=== PATIENT | female | born 1995 | race African-American/Black ===

== ENCOUNTER 2017-02-14 03:25 | Emergency (ER) | payer MEDICAID ==
[~2017-02-14] VITALS: Ht 180.3 cm; Wt 131.1 kg
[2017-02-14] MEDS ORDERED: ALPR2TAB2 PO (03:46)
[2017-02-14 04:23] LABS: ASPARTATE AMINO TRANSFERASE 20 U/L (15-37); BLOOD UREA NITROGEN 9 mg/dL (7-18)
[2017-02-14 04:33] LABS: PATH.CAST-FLAG NOT PRESENT; SPERM-FLAG NOT PRESENT; SRC-FLAG NOT PRESENT; XTAL-FLAG NOT PRESENT; YLC-FLAG NOT PRESENT
[2017-02-14 05:37] VITALS: BP 132/73
== END 2017-02-14 05:27 | disposition home or self-care (01) ==
LOC: ED 03:51
DX: N92.0 Excessive and frequent menstruation with regular cycle (principal); R10.2 Pelvic and perineal pain
CPT/HCPCS: 36415; 76830; 80053; 81001; 84703; 85025; 99285

== ENCOUNTER 2017-03-06 14:02 | Emergency (ER) | payer SELFPAY ==
[~2017-03-06] VITALS: Ht 177.8 cm; Wt 130.0 kg
[~2017-03-06 14:02] MED LIST: ALPR2TAB2 PO
[2017-03-06] MEDS ORDERED: SODIUM CHLORIDE 0.9% 1,000ML IVBOLUS ONE (15:00)
[2017-03-06 15:20] LABS: BLOOD UREA NITROGEN 11 mg/dL (7-18)
[2017-03-06 17:31] VITALS: BP 135/72
[2017-03-06] MEDS ORDERED: OMNIPAQUE 350 MG/ML, 100ML BOTTLE ONE (17:50)
== END 2017-03-06 17:33 | disposition home or self-care (01) ==
LOC: ED 16:22
DX: S16.1XXA Strain of muscle, fascia and tendon at neck level, initial encounter (principal); M54.6 Pain in thoracic spine; V49.9XXA Car occupant (driver) (passenger) injured in unspecified traffic accident, initial encounter; Y93.89 Activity, other specified; Y92.89 Other specified places as the place of occurrence of the external cause; Y99.8 Other external cause status
CPT/HCPCS: 36415; 72020; 72072; 72110; 74177; 80048; 82040; 84703; 85025; 96360; 96361; 99285; J7030; Q9967

== ENCOUNTER 2018-08-08 09:28 | Emergency (ER) | payer MEDICAID, OTHER ==
[~2018-08-08] VITALS: Ht 180.3 cm; Wt 137.2 kg
[2018-08-08 09:47] VITALS: BP 138/81
[2018-08-08] MEDS ORDERED: HYDROmorphone 1 MG/ML, 1ML IM ONE (10:30)
[2018-08-08] MEDS ORDERED: ONDANSETRON ODT 4 MG PO ONE (10:30)
[2018-08-08 10:33] LABS: BASOPHILS # (AUTO) 0.04 x10^3/uL (0-0.1); BASOPHILS % (AUTO) 0 % (0-1); EOSINOPHILS # (AUTO) 0.51 x10^3/uL (0-0.4); EOSINOPHILS % (AUTO) 5 % (1-7); LYMPHOCYTES % (AUTO) 16 % (22-44); MD NO; MEAN CORPUSCULAR HEMOGLOBIN 27.4 pg (27.0-34.8); MEAN CORPUSCULAR HGB CONC 32.8 g/dL (32.4-35.8); MEAN CORPUSCULAR VOLUME 83.3 fL (80-100); MEAN PLATELET VOLUME 7.9 fL (7.4-10.4); MONOCYTES # (AUTO) 0.71 x10^3/uL (0.2-0.8); MONOCYTES % (AUTO) 7 % (2-9); NEUTROPHILS # (AUTO) 7.67 x10^3/uL (1.8-6.8); NEUTROPHILS % (AUTO) 72 % (42-75); PLATELET COUNT 298 x10^3/uL (130-400); RED BLOOD COUNT 4.99 x10^6/uL (3.82-5.3); RED CELL DISTRIBUTION WIDTH 14.2 % (9.6-15.2)
[2018-08-08 10:44] LABS: ALANINE AMINOTRANSFERASE 48 U/L (12-78); ALBUMIN 3.7 g/dL (3.4-5.0); ANION GAP 5 mmol/L (5-15); CALCIUM 8.8 mg/dL (8.5-10.1); CHLORIDE 107 mmol/L (98-107); CREATININE 0.84 mg/dL (0.55-1.02)
[2018-08-08] MEDS ORDERED: ONDANSETRON ODT 4 MG ONE (10:45)
[2018-08-08 10:46] LABS: ALKALINE PHOSPHATASE 80 U/L (45-117); BILIRUBIN,TOTAL 0.3 mg/dL (0.2-1.0); TOTAL PROTEIN 7.1 g/dL (6.4-8.2)
[2018-08-08] MEDS ORDERED: OXYcodone/APAP 10/325MG TABLET PO ONE (11:00)
[2018-08-08] MEDS ORDERED: ONDANSETRON ODT 4 MG PO PRN (11:00)
[2018-08-08] MEDS ORDERED: MAALOX/HYOSCYAMINE/LIDOCAINE 45 ML BTL PO ONE (11:00)
[2018-08-08] MEDS ORDERED: OXYcodone/APAP 10/325MG TABLET ONE (11:09)
[2018-08-08] MEDS ORDERED: MAALOX/HYOSCYAMINE/LIDOCAINE 45 ML BTL ONE (11:09)
[2018-08-08 11:22] LABS: HCG UR SG 1.017 (1.003-1.030)
[2018-08-08 11:29] LABS: MICROSCOPIC AUTO
[2018-08-08 11:30] LABS: CULTURE INDICATED? YES
== END 2018-08-08 12:22 | disposition home or self-care (01) ==
LOC: ED 10:54
DX: R10.13 Epigastric pain (principal); R10.11 Right upper quadrant pain
CPT/HCPCS: 36415; 76700; 80053; 81001; 81025; 83690; 85025; 87086; 99285; Q0162

== ENCOUNTER 2018-08-17 02:08 | Emergency (ER) | payer SELFPAY ==
[~2018-08-17] VITALS: Ht 180.3 cm; Wt 135.8 kg
[2018-08-17 02:10] VITALS: BP 154/91
[2018-08-17] MEDS ORDERED: PROPARACAINE OPHTH 0.5%, 15ML ONE (02:16)
== END 2018-08-17 03:28 | disposition home or self-care (01) ==
LOC: ED 02:21
DX: H10.211 Acute toxic conjunctivitis, right eye (principal)
CPT/HCPCS: 99283

== ENCOUNTER 2018-08-17 18:46 | Emergency (ER) | payer SELFPAY ==
[~2018-08-17] VITALS: Ht 177.8 cm; Wt 136.2 kg
[2018-08-17 18:49] VITALS: BP 125/73
[2018-08-17] MEDS ORDERED: PROPARACAINE OPHTH 0.5%, 15ML EACHEYE ONE (19:00)
[2018-08-17] MEDS ORDERED: PROPARACAINE OPHTH 0.5%, 15ML ONE (19:04)
== END 2018-08-17 19:30 | disposition home or self-care (01) ==
LOC: ED 19:24
DX: H10.31 Unspecified acute conjunctivitis, right eye (principal)
CPT/HCPCS: 99283

== ENCOUNTER 2018-10-08 01:21 | Emergency (ER) | payer SELFPAY ==
[~2018-10-08] VITALS: Ht 180.3 cm; Wt 125.0 kg
--- NOTE | 2018-10-08 01:33 | NUR ---
PT HERE FOR RUQ PAIN THAT STARTED 8 Days AGO WITH N/V. PT HAS HX OF GALL STONES. PT IN OBVIOUS DISCOMFORT. PT CHANGING INTO A GOWN. PT TOOK 10/325 OF PERCOCET APPROX 1 HR PRIOR TO ARRIVAL. FAMILY AT BEDSIDE
[2018-10-08] MEDS ORDERED: MORPHINE SULFATE 4 MG/ML, 1ML IVPush PRN (02:00)
[2018-10-08] MEDS ORDERED: SODIUM CHLORIDE FLUSH 10ML SYR IVF ONE (02:00)
[2018-10-08] MEDS ORDERED: ONDANSETRON 2MG/ML, 2ML IVPush ONE (02:00)
[2018-10-08] MEDS ORDERED: ONDANSETRON 2MG/ML, 2ML ONE (02:04)
[2018-10-08] MEDS ORDERED: MORPHINE SULFATE 4 MG/ML, 1ML ONE (02:04)
[2018-10-08 02:24] LABS: BASOPHILS # (AUTO) 0.09 x10^3/uL (0-0.1); BASOPHILS % (AUTO) 1 % (0-1); EOSINOPHILS % (AUTO) 1 % (1-7); LYMPHOCYTES # (AUTO) 2.38 x10^3/uL (1-3.4); LYMPHOCYTES % (AUTO) 25 % (22-44); MD NO; MEAN CORPUSCULAR HEMOGLOBIN 27.6 pg (27.0-34.8); MEAN CORPUSCULAR VOLUME 83.5 fL (80-100); MEAN PLATELET VOLUME 8.1 fL (7.4-10.4); MONOCYTES # (AUTO) 1.03 x10^3/uL (0.2-0.8); MONOCYTES % (AUTO) 11 % (2-9); NEUTROPHILS # (AUTO) 5.91 x10^3/uL (1.8-6.8); NEUTROPHILS % (AUTO) 62 % (42-75); PLATELET COUNT 337 x10^3/uL (130-400); RED BLOOD COUNT 5.15 x10^6/uL (3.82-5.3); RED CELL DISTRIBUTION WIDTH 14.4 % (9.6-15.2)
--- NOTE | 2018-10-08 02:29 | NUR ---
PT MEDICATED. PT TO US
[2018-10-08 02:38] LABS: ALANINE AMINOTRANSFERASE 39 U/L (12-78); ALBUMIN 3.8 g/dL (3.4-5.0); ANION GAP 9 mmol/L (5-15); CALCIUM 9.1 mg/dL (8.5-10.1); CHLORIDE 107 mmol/L (98-107); CREATININE 0.95 mg/dL (0.55-1.02)
[2018-10-08 02:43] LABS: ALKALINE PHOSPHATASE 80 U/L (45-117); BILIRUBIN,TOTAL 0.5 mg/dL (0.2-1.0); TOTAL PROTEIN 7.9 g/dL (6.4-8.2)
[2018-10-08 04:14] VITALS: BP 117/74
--- NOTE | 2018-10-08 04:16 | NUR ---
Patient given discharge instructions and they have confirmed that they understand the instructions. Patient ambulatory with steady gait.
== END 2018-10-08 04:16 | disposition home or self-care (01) ==
LOC: ED 01:57
DX: K80.20 Calculus of gallbladder without cholecystitis without obstruction (principal); R11.2 Nausea with vomiting, unspecified
CPT/HCPCS: 36415; 76700; 80053; 83690; 84703; 85025; 86677; 96374; 96375; 99284; J2405

== ENCOUNTER 2018-10-13 09:16 | Inpatient (IN) | payer BC ==
[~2018-10-13] VITALS: Ht 177.8 cm; Wt 131.6 kg
[2018-10-13] MEDS ORDERED: ZIPRASIDONE 20 MG INJ IM ONE ×2 (10:00→10:07)
[2018-10-13 10:36] LABS: BASOPHILS # (AUTO) 0.02 x10^3/uL (0-0.1); BASOPHILS % (AUTO) 0 % (0-1); EOSINOPHILS % (AUTO) 1 % (1-7); LYMPHOCYTES # (AUTO) 1.19 x10^3/uL (1-3.4); LYMPHOCYTES % (AUTO) 10 % (22-44); MD NO; MEAN CORPUSCULAR HEMOGLOBIN 27.3 pg (27.0-34.8); MEAN CORPUSCULAR HGB CONC 33.4 g/dL (32.4-35.8); MEAN CORPUSCULAR VOLUME 81.8 fL (80-100); MEAN PLATELET VOLUME 7.7 fL (7.4-10.4); MONOCYTES # (AUTO) 0.77 x10^3/uL (0.2-0.8); MONOCYTES % (AUTO) 6 % (2-9); NEUTROPHILS # (AUTO) 10.14 x10^3/uL (1.8-6.8); NEUTROPHILS % (AUTO) 83 % (42-75); PLATELET COUNT 444 x10^3/uL (130-400); RED BLOOD COUNT 5.03 x10^6/uL (3.82-5.3); RED CELL DISTRIBUTION WIDTH 14.1 % (9.6-15.2)
[2018-10-13 10:40] LABS: ALBUMIN 3.8 g/dL (3.4-5.0); ANION GAP 9 mmol/L (5-15); CALCIUM 9.3 mg/dL (8.5-10.1); CHLORIDE 107 mmol/L (98-107)
[2018-10-13 10:46] LABS: ALANINE AMINOTRANSFERASE 47 U/L (12-78); ALKALINE PHOSPHATASE 86 U/L (45-117); BILIRUBIN,TOTAL 0.9 mg/dL (0.2-1.0); CREATININE 0.75 mg/dL (0.55-1.02); TOTAL PROTEIN 9.2 g/dL (6.4-8.2)
--- NOTE | 2018-10-13 10:53 | NUR ---
PT RESTING ON MAGDIEL. VAISHALI. VSS. PT STATES PAIN IMPROVED AFTER GEODON.
--- NOTE | 2018-10-13 11:13 | NUR ---
REPORT GIVEN TO BENNY BARKER.
--- NOTE | 2018-10-13 11:32 | NUR ---
PT RESTING ON GURNEY. RR EVEN AND UNLABORED. AWAITING LAB RESULTS
[2018-10-13 12:01] LABS: MICROSCOPIC INDICATED
[2018-10-13 12:02] LABS: CULTURE INDICATED? YES
--- NOTE | 2018-10-13 12:58 | NUR ---
PATIENT'S MOTHER IN ROOM. WHEN THIS RN WENT TO DC PT, THE MOTHER TOLD THIS RN THAT "THEY ARE REFUSING TO SIGN ANY DC PAPERWORK, WE WANT TO SPEAK TO THE DOCTOR AGAIN. SHE'S NOT IN PAIN ANYMORE BECAUSE YOU GUYS GAVE HER PAIN MEDS. BUT SOON SHE GOES HOME SHE WILL BE IN PAIN AGAIN. THEY TOLD US TO FOLLOW UP WITH A GI DOCTOR BUT SHE CAN'T GET INTO THEM UNTIL DECEMBER." DR COVARRUBIAS NOTIFIED
--- NOTE | 2018-10-13 13:23 | NUR ---
PT BEING ADMITTED
--- NOTE | 2018-10-13 13:28 | NUR ---
REPORT GIVEN TO BENNY BLANC
[2018-10-13] MEDS: SODIUM CHLORIDE 0.9% 1,000 ML IV SCH ×2 (14:57→22:39)
[2018-10-13] MEDS ORDERED: hydrALAzine 20 MG/ML, 1ML IVPush PRN (15:00)
[2018-10-13] MEDS ORDERED: morphine SULFATE 10 MG/ML, 1ML IVPush PRN (15:00)
[2018-10-13] MEDS: KETOROLAC 30 MG/1 ML IV SCH ×2 (15:10→20:54)
[2018-10-13] MEDS: CEFTRIAXONE PMX 2GM/50ML 50 ML IV SCH (15:11)
[2018-10-13 15:34] VITALS: BP 120/68
[2018-10-13 18:46] VITALS: BP 130/80
[2018-10-14 01:02] VITALS: BP 121/75
[2018-10-14] MEDS: KETOROLAC 30 MG/1 ML IV SCH ×4 (02:57→21:04)
[2018-10-14 05:54] LABS: ALBUMIN 2.8 g/dL (3.4-5.0); ANION GAP 7 mmol/L (5-15); CALCIUM 8.6 mg/dL (8.5-10.1); CHLORIDE 111 mmol/L (98-107)
[2018-10-14 05:55] LABS: BASOPHILS # (AUTO) 0.01 x10^3/uL (0-0.1); BASOPHILS % (AUTO) 0 % (0-1); EOSINOPHILS # (AUTO) 0.08 x10^3/uL (0-0.4); EOSINOPHILS % (AUTO) 1 % (1-7); LYMPHOCYTES # (AUTO) 1.75 x10^3/uL (1-3.4); LYMPHOCYTES % (AUTO) 18 % (22-44); MD NO; MEAN CORPUSCULAR HEMOGLOBIN 27.3 pg (27.0-34.8); MEAN CORPUSCULAR HGB CONC 32.8 g/dL (32.4-35.8); MEAN CORPUSCULAR VOLUME 83.2 fL (80-100); MEAN PLATELET VOLUME 7.7 fL (7.4-10.4); MONOCYTES # (AUTO) 0.98 x10^3/uL (0.2-0.8); MONOCYTES % (AUTO) 10 % (2-9); NEUTROPHILS # (AUTO) 6.71 x10^3/uL (1.8-6.8); NEUTROPHILS % (AUTO) 70 % (42-75); PLATELET COUNT 360 x10^3/uL (130-400); RED CELL DISTRIBUTION WIDTH 14.2 % (9.6-15.2)
[2018-10-14 05:57] LABS: ALANINE AMINOTRANSFERASE 58 U/L (12-78); ALKALINE PHOSPHATASE 78 U/L (45-117); BILIRUBIN,TOTAL 0.5 mg/dL (0.2-1.0); CREATININE 0.77 mg/dL (0.55-1.02); TOTAL PROTEIN 7.1 g/dL (6.4-8.2)
[2018-10-14] MEDS: SODIUM CHLORIDE 0.9% 1,000 ML IV SCH ×3 (06:11→19:35)
[2018-10-14 07:18] VITALS: BP 108/58
[2018-10-14] MEDS: ONDANSETRON 2MG/ML, 2ML IVPush PRN ×3 (08:45→21:04)
[2018-10-14 12:58] VITALS: BP 108/60
[2018-10-14] MEDS: CEFTRIAXONE PMX 2GM/50ML 50 ML IV SCH (15:08)
[2018-10-14] MEDS: ACETAMINOPHEN 325 MG TABLET PO PRN (15:17)
[2018-10-14 19:51] VITALS: BP 101/54
[2018-10-15] MEDS: SODIUM CHLORIDE 0.9% 1,000 ML IV SCH ×3 (01:45→15:30)
[2018-10-15 02:39] VITALS: BP 113/66
[2018-10-15] MEDS: ONDANSETRON 2MG/ML, 2ML IVPush PRN ×2 (03:02→09:21)
[2018-10-15] MEDS: ACETAMINOPHEN 325 MG TABLET PO PRN ×3 (03:02→15:34)
[2018-10-15 08:16] VITALS: BP 112/62
[2018-10-15] MEDS ORDERED: SUCR1ORA5 PO (13:46)
[2018-10-15] MEDS ORDERED: TRAM50TA2 PO (13:46)
[2018-10-15] MEDS ORDERED: OMEP-110 PO (13:46)
[2018-10-15] MEDS ORDERED: ONDA4TAB13 SL (13:48)
[2018-10-15 13:52] VITALS: BP 76/62
[2018-10-15] MEDS ORDERED: SUCRALFATE 1 GM/10 ML UDC PO SCH (14:00)
[2018-10-15] MEDS ORDERED: OMEPRAZOLE 20 MG CAPSULE.DR PO SCH (14:00)
[2018-10-15] MEDS: CEFTRIAXONE PMX 2GM/50ML 50 ML IV SCH (14:32)
== END 2018-10-15 15:55 | disposition home or self-care (01) | DRG 872 ==
LOC: ED 09:39 → EDIP 13:01 → 4NOR 14:48
PROVIDERS: ADMIT Hospitalist; ATTEND Internal Medicine
DX: A41.9 Sepsis, unspecified organism (principal); Z68.41 Body mass index [BMI] 40.0-44.9, adult; N10 Acute pyelonephritis; E28.2 Polycystic ovarian syndrome; E66.01 Morbid (severe) obesity due to excess calories; F12.90 Cannabis use, unspecified, uncomplicated; K59.00 Constipation, unspecified; K76.0 Fatty (change of) liver, not elsewhere classified; Z80.41 Family history of malignant neoplasm of ovary; Z82.49 Family history of ischemic heart disease and other diseases of the circulatory system; D47.3 Essential (hemorrhagic) thrombocythemia
CPT/HCPCS: 36415; 80053; 81001; 83605; 83690; 83735; 84100; 84703; 85025; 87040; 87086; 93005; 96372; 99285; G0378; J0696; J1885; J2405; J3486; J2270; J7030

== ENCOUNTER 2018-10-24 16:49 | Outpatient (CLI) | payer BC | END 2018-10-24 23:59 | disposition home or self-care (01) | LOC: LAB 16:49 | PROVIDERS: ATTEND Internal Medicine Gastroenterology | DX: Z02.9 Encounter for administrative examinations, unspecified (principal) ==

== ENCOUNTER → 2018-10-24 | Outpatient (CLI) | payer BC ==
[~2018-10-24] MED LIST changes: +OMEP-110 PO; +ONDA4TAB13 SL; +SUCR1ORA5 PO; +TRAM50TA2 PO
== END | disposition home or self-care (01) ==
LOC: CFH 15:59
PROVIDERS: ATTEND Internal Medicine Gastroenterology
DX: E04.9 Nontoxic goiter, unspecified (principal); G43.909 Migraine, unspecified, not intractable, without status migrainosus; J45.909 Unspecified asthma, uncomplicated; R11.2 Nausea with vomiting, unspecified; R10.11 Right upper quadrant pain
CPT/HCPCS: 76536

== ENCOUNTER 2018-11-29 12:44 | Outpatient (CLI) | payer BC | END 2018-11-29 23:59 | disposition home or self-care (01) | LOC: RAD 12:44 | PROVIDERS: ATTEND Internal Medicine Gastroenterology | DX: E04.1 Nontoxic single thyroid nodule (principal) | CPT/HCPCS: 10005; 76942; 88172; 88173 ==

== ENCOUNTER 2019-02-26 23:02 | Emergency (ER) | payer BC ==
[~2019-02-26] VITALS: Ht 180.3 cm; Wt 134.0 kg
[2019-02-26 23:04] VITALS: BP 141/84
--- NOTE | 2019-02-26 23:14 | NUR ---
PT. C/O BILAT FLANK PAIN X 1 WEEK. DENIES DYSURIA. C/O LOWER ABD PAIN WITH N/V. HX OF PCOS. [facility] THIS YEAR PER PT.
[2019-02-26 23:51] LABS: HCG UR SG 1.024 (1.003-1.030); MICROSCOPIC AUTO
[2019-02-26 23:56] LABS: CULTURE INDICATED? YES
[2019-02-27 00:03] LABS: MEAN CORPUSCULAR HEMOGLOBIN 27.6 pg (27.0-34.8); MEAN CORPUSCULAR HGB CONC 32.1 g/dL (32.4-35.8); MEAN CORPUSCULAR VOLUME 86.2 fL (80-100); MEAN PLATELET VOLUME 7.5 fL (7.4-10.4); PLATELET COUNT 301 x10^3/uL (130-400); RED BLOOD COUNT 5.17 x10^6/uL (3.82-5.3)
[2019-02-27 00:08] LABS: ALANINE AMINOTRANSFERASE 38 U/L (12-78); ALBUMIN 3.6 g/dL (3.4-5.0); ANION GAP 5 mmol/L (5-15); CALCIUM 8.8 mg/dL (8.5-10.1); CHLORIDE 108 mmol/L (98-107); CREATININE 0.81 mg/dL (0.55-1.02)
[2019-02-27 00:10] LABS: ALKALINE PHOSPHATASE 83 U/L (45-117); BILIRUBIN,TOTAL 0.3 mg/dL (0.2-1.0); TOTAL PROTEIN 7.4 g/dL (6.4-8.2)
--- NOTE | 2019-02-27 00:23 | NUR ---
THIS NURSE CHAPERONED PELVIC EXAM, WET PREP SENT TO LAB
[2019-02-27 00:26] LABS: BASOPHILS # (AUTO) 0.02 x10^3/uL (0-0.1); BASOPHILS % (AUTO) 0 % (0-1); EOSINOPHILS # (AUTO) 0.45 x10^3/uL (0-0.4); EOSINOPHILS % (AUTO) 6 % (1-7); LYMPHOCYTES # (AUTO) 2.24 x10^3/uL (1-3.4); LYMPHOCYTES % (AUTO) 30 % (22-44); MD SCAN; MONOCYTES # (AUTO) 0.58 x10^3/uL (0.2-0.8); MONOCYTES % (AUTO) 8 % (2-9); NEUTROPHILS % (AUTO) 57 % (42-75)
[2019-02-27 00:32] LABS: CLUE CELLS PRESENT (NONE SEEN)
[2019-02-27 00:33] LABS: WET PREP WBCS MODERATE (FEW)
[2019-02-27] MEDS ORDERED: LIDOCAINE-MPF 1%, 2ML ONE (00:44)
[2019-02-27] MEDS ORDERED: AZITHROMYCIN 250 MG TABLET ONE (00:44)
[2019-02-27] MEDS ORDERED: CEFTRIAXONE 250 MG ONE (00:44)
--- NOTE | 2019-02-27 00:55 | NUR ---
TASK RN: PT AMBULATED STEADILY TO DC WITH PRIMARY RN, SHEILA
[2019-02-27] MEDS ORDERED: CEFTRIAXONE 250 MG IM ONE (01:00)
[2019-02-27] MEDS ORDERED: AZITHROMYCIN 500 MG TABLET PO ONE (01:00)
== END 2019-02-27 00:05 | disposition home or self-care (01) ==
LOC: ED 23:24
DX: E28.2 Polycystic ovarian syndrome (principal)
CPT/HCPCS: 36415; 80053; 81001; 81025; 83690; 85025; 87086; 87210; 87491; 87591; 87808; 96372; 99283; J0696

== ENCOUNTER 2020-02-05 01:11 | Emergency (ER) | payer BC, MEDICAID ==
[~2020-02-05] VITALS: Ht 177.8 cm; Wt 150.0 kg
[2020-02-05 01:37] LABS: HCG UR SG 1.031 (1.003-1.030)
[2020-02-05 01:38] LABS: CULTURE INDICATED? YES; MICROSCOPIC INDICATED
[2020-02-05 02:37] VITALS: BP 154/78
== END 2020-02-05 02:39 | disposition home or self-care (01) ==
LOC: ED 01:46
DX: N39.0 Urinary tract infection, site not specified (principal); R30.0 Dysuria; E03.9 Hypothyroidism, unspecified
CPT/HCPCS: 81001; 81025; 87077; 87086; 87186; 99283